=== PATIENT | male | born 1995 | race Caucasian/White ===

== ENCOUNTER → 2020-01-03 16:50 | Outpatient (BNVA) | payer SELFPAY | PROVIDERS: Family Provider Nurse Practitioner Family; PCP Nurse Practitioner Family; Visit Provider Nurse Practitioner | DX: J03.90 Acute tonsillitis, unspecified (principal); K12.0 Recurrent oral aphthae | CPT/HCPCS: 87081; 87880 ==

== ENCOUNTER 2020-09-29 10:57 | Outpatient (CLI) | payer OTHER, SELFPAY ==
--- NOTE | 2020-09-29 11:07 | MR_ITS ---
WS: [id number] MRI CERVICAL SPINE with and without contrast. HISTORY: NUMBNESS Limb; vision CHANGES COMPARISON: Cervical spine CT 01/19/2019 Multiplanar sequences throughout the cervical spine with and without contrast. Normal cervical alignment with no compression fracture or significant disc space narrowing. Signal within the cervical cord is normal. Visualized posterior fossa is unremarkable. Craniocervical junction, C1 and C2 relationship, odontoid process and soft tissues are normal. C2-C3: Normal. C3-C4: Small central disc protrusion with near contact on the cord. Small bilateral foraminal osteoph ytes only minimal narrowing. C4-C5: Mild annular disc bulging with small foraminal osteophytes. Very mild foraminal narrowing. C5-C6: Normal. C6-C7: Normal. C7-T1: Normal. No signal abnormalities on the postcontrast sequences. No cord enhancement or demyelinating lesions i dentified. No cord atrophy or enlargement. MR/MR cervical spine wo/w [id number] IMPRESSION: 1. No cervical cord demyelinating lesions or enhancement. 2. Small central disc protrusion at C3-4. 3. Mild foraminal narrowing at C3-4 and C4-5 due to osteophytes. No significan t stenosis.
--- NOTE | 2020-09-29 11:07 | MR_ITS ---
WS: [id number] MRI BRAIN WITH AND WITHOUT CONTRAST HISTORY: NUMBNESS Limb; vision CHANGES COMPARISON: CT head 01/19/2019 TECHNIQUE: Multiplanar imaging performed through the brain with Prohance 17 ml's IV. No acute infarcts are seen. Duong-white matter differentiation is well preserved. This study was not p erformed to evaluate the orbits or optic nerves but there is no significant signal abnormality or enl argement. No optic disc protrusions. No susceptibility artifacts or prior lacunar infarcts. Ventricles and extra-axial spaces are normal. Clivus and pituitary gland are normal. Visualized posterior fossa and brainstem are also normal. Postcontrast images are negative for masses or vascular malformations. Dural venous sinuses are normal. Paranasal sinuses: Well aerated with no significant disease. Mastoid air cells: Normal. Calvarium and scalp: Normal. MR/MR head wo/w con [id number] IMPRESSION: 1. Normal MRI brain with contrast. 2. No demyelinating lesions are identified.
== END 2020-09-29 10:58 | disposition home or self-care (01) ==
LOC: RADSHAW 11:01
PROVIDERS: PCP Family Medicine; Visit Provider Family Medicine
DX: H53.9 Unspecified visual disturbance (principal); R20.0 Anesthesia of skin; M50.21 Other cervical disc displacement, high cervical region; M25.78 Osteophyte, vertebrae
CPT/HCPCS: 70553; 72156; A9579

== ENCOUNTER 2020-10-07 12:32 | Outpatient (CLI) | payer OTHER, SELFPAY ==
--- NOTE | 2020-10-07 13:10 | MR_ITS ---
WS: [id number] MRI LUMBAR SPINE WITH CONTRAST TECHNIQUE: Sagittal T1, T2 and STIR imaging. Axial T1 and T2 imaging. Post gadolinium imaging was obt ained. CLINICAL INFORMATION: ANESTHESIA OF SKIN;NUMBNESS;VISION CHANGES;VISUAL DISTURBANC COMPARISON: None. FINDINGS: Mild lumbar curve. No acute compression. No high-grade central canal stenosis. L1-L2: Normal. L2-L3: No significant disc bulging. Mild facet arthropathy. Spinal canal and foramen are patent. L3-L4: Minimal annular bulging. Slight narrowing of the right subarticular recess. Tiny right proxima l foraminal protrusion with mild right foraminal narrowing. Left foramen is patent. Mild facet arthro mason. L4-L5: Mild annular bulging with slight effacement of the ventral thecal sac. Small right foraminal p rotrusion with mild right and no significant left foraminal narrowing. Mild facet arthropathy. L5-S1: Mild disc bulging with slight effacement of the ventral thecal sac. Spinal canal and foramen a re patent. Mild facet arthropathy. Visualized pelvic bony structures: Normal. Paravertebral soft tissues: Normal. MR/MR lumbar spine wo/w con [id number] IMPRESSION: 1. Mild lumbar curve. No acute compression. No high-grade central canal stenos is. 2. No abnormal gadolinium enhancement. No demyelinating lesions in the lower t horacic cord. 3. Slight narrowing of the right L3-4 subarticular recess with a small right f oraminal protrusion and mild right L3-4 foraminal narrowing. 4. Mild right L4-5 foraminal narrowing. 5. Mild facet arthropathy L3-5.
--- NOTE | 2020-10-07 13:10 | MR_ITS ---
WS: [id number] MRI THORACIC SPINE WITH CONTRAST TECHNIQUE: Sagittal T1, T2 and STIR imaging. Axial T2 imaging. Post gadolinium imaging was obtained. CLINICAL INFORMATION: ANESTHESIA OF SKIN;NUMBNESS;VISION CHANGES;VISUAL DISTURBANC COMPARISON: None. FINDINGS: Mild thoracic curve. No acute compression. No significant central canal stenosis. Normal bone marrow signal in the thoracic spine. Disc space heights and vertebral body heights well-preserved. No demyelinating lesions within the thoracic cord. Normal cord signal. No abnormal gadolinium enhance ment. No enhancing lesions. Tiny prominent central canal or tiny syrinx in the lower thoracic cord measuring 1 mm at T11 and T12. Normal caliber thoracic aorta. No other significant findings. MR/MR thoracic spine wo/w [id number] IMPRESSION: 1. Mild thoracic curve. No acute compression. No high-grade central canal sten osis. 2. No demyelinating lesions in the cervical cord. Cord signal is normal. No en hancing lesions. 3. Tiny prominent central canal or tiny syrinx in the lower thoracic at T11 an d T12 likely incidental. 4. No other significant findings.
== END 2020-10-07 12:33 | disposition home or self-care (01) ==
LOC: RADSHAW 12:35
PROVIDERS: PCP Family Medicine; Visit Provider Family Medicine
DX: M51.26 Other intervertebral disc displacement, lumbar region (principal); R20.0 Anesthesia of skin; H53.9 Unspecified visual disturbance
CPT/HCPCS: 72157; 72158